=== PATIENT | female | born 1980 | race Caucasian/White ===

== ENCOUNTER 2022-05-22 12:35 | Emergency (ER) | payer OTHER, SELFPAY ==
[2022-05-22 14:19] VITALS: BP 200/117; PULSE 108; RESP 17; TEMP 36.6; O2SAT 99
[2022-05-22 15:09] LABS: Influenza A QL RT-PCR Negative (Negative); Influenza B QL RT-PCR Negative (Negative); RSV RNA, RT-PCR Negative (Negative); SARS-CoV-2 RNA PCR Negative
--- NOTE | 2022-05-22 16:43 | PC.NURSE ---
Pt ambulatory to ED intake desk and states Im just gonna leave, there are people here sicker than me, I dont want to wait anymore. Pt declined re vitals due to this RN request (hypertensive). Pt ambulated out w/ steady gait.
== END 2022-05-22 16:43 | disposition left against medical advice (07) ==
LOC: ANHED 16:47
PROVIDERS: Emergency Provider Emergency Medicine
DX: Z20.822 Contact with and (suspected) exposure to COVID-19 (principal)
CPT/HCPCS: 87637; 99199

== ENCOUNTER 2023-09-05 08:13 | Emergency (ER) | payer OTHER, SELFPAY ==
[2023-09-05 08:17] VITALS: BP 158/105; PULSE 114; RESP 16; TEMP 36.7; O2SAT 98
--- NOTE | 2023-09-05 08:34 | ED.GENADULT ---
HPI - General Adult General Chief complaint: Headache Stated complaint: headache Time Seen by Provider: 09/05/23 08:26 History of Present Illness HPI narrative: 43-year-old female present to the emergency department for evaluation for left-sided headache and neck pain. Patient states symptoms started yesterday and have been intermittent. Patient denies any falls or injuries. Patient denies any coughs colds or fevers. Patient denies any change in vision, patient denies any dental pain. Patient denies any ear pain Related Data Allergies Allergy/AdvReac Type Severity Reaction Status Date / Time No Known Allergies Allergy Verified 09/05/23 08:20 Review of Systems Review of Systems: All systems reviewed & are unremarkable except as noted in HPI and below Exam Narrative: APPEARANCE: Well appearing, no pain, no distress, well-nourished. HEAD: normocephalic, atraumatic. EYES: PERRLA/EOMI, conjunctivae clear. NOSE: Normal no drainage EARS:TMS clear with good light reflex. THROAT: Pharynx clear, no exudate. NECK: Supple. No adenopathy, no masses. RESPIRATORY: Airway patent, respirations nonlabored. Clear to auscultation bilaterally, no rales, rhonchi, wheezing. CARDIOVASCULAR: Regular rate and rhythm without murmurs rubs or gallops. ABDOMINAL: Soft, nontender, nondistended, normal bowel sounds MUSCULOSKELETAL: Moves all extremities. Strength/ROM intact, No edema, No calf tenderness. NEURO: Alert. Cranial nerves II through XII intact. SKIN: Warm, dry. Normal Color Course Vital Signs Vital signs: Vital Signs Temperature 98.1 F 09/05/23 08:17 Pulse Rate 114 H 09/05/23 08:17 Respiratory Rate 16 09/05/23 08:17 Blood Pressure 158/105 H 09/05/23 08:17 Pulse Oximetry 98 09/05/23 08:17 Temperature 98.1 F 09/05/23 08:17 Pulse Rate 114 H 09/05/23 08:17 Respiratory Rate 16 09/05/23 08:17 Blood Pressure 158/105 H 09/05/23 08:17 Pulse Oximetry 98 09/05/23 08:17 Medical Decision Making [facility] Narrative Medical decision making narrative: 43-year-old female presented emergency department for evaluation of left posterior lateral neck pain. Patient reports her symptoms are improved with treatment. Patient has declined any additional medications. Possible migraine. Low concern for dental infection and otitis media. Patient was advised to take Tylenol and ibuprofen for pain control patient will be provided Flexeril for additional muscle spasm control. Patient was encouraged of close follow-up with her primary care physician. Differential Diagnosis Differential Diagnosis: Otitis media, otitis externa, sinusitis, muscle strain, migraine, cervical spine injury, dental infection Vital Signs Vital Signs: Vital Signs Temperature 98.1 F 09/05/23 08:17 Pulse Rate 114 H 09/05/23 08:17 Respiratory Rate 16 09/05/23 08:17 Blood Pressure 158/105 H 09/05/23 08:17 Pulse Oximetry 98 09/05/23 08:17 Temperature 98.1 F 09/05/23 08:17 Pulse Rate 114 H 09/05/23 08:17 Respiratory Rate 16 09/05/23 08:17 Blood Pressure 158/105 H 09/05/23 08:17 Pulse Oximetry 98 09/05/23 08:17 Discharge Plan Discharge Clinical Impression: Headache, Neck pain Patient Disposition: Home, Self-Care Condition: Stable Instructions: Antibiotic Form Additional Instructions: Tylenol and ibuprofen for pain control. Flexeril as needed for muscle spasm. Have close follow-up with your primary care physician. If you have any worsening symptoms then please call or return to the emergency department. Prescriptions: New cyclobenzaprine 10 mg tablet 10 mg PO BID PRN (Reason: muscle spasm) Qty: 14 0RF Follow-up/Referrals: PHYSICIAN,LOG DECKMAN [Non-Staff] -
[2023-09-05] MEDS: KETOROLAC 15 MG/ML VIAL (*BKC) 30 MG IM (08:45)
[2023-09-05] MEDS: CYCLOBENZAPRINE HCL 10 MG TABLET PO (08:45)
== END 2023-09-05 10:45 | disposition home or self-care (01) ==
PROVIDERS: Emergency Provider Emergency Medicine
DX: R51.9 Headache, unspecified (principal); M54.2 Cervicalgia
CPT/HCPCS: 96372; 99283; A9270; J1885

== ENCOUNTER 2024-06-13 15:45 | Outpatient (CLI) | payer OTHER, SELFPAY ==
--- NOTE | ~2024-06-13 | MM_ITS ---
EXAMINATION: MM screening [facility] BI w giovana HISTORY: Baseline screening TECHNIQUE: Craniocaudal and mediolateral oblique 3-D tomosynthesis images were obtained and synthetic 2-D images were generated. CAD analysis was submitted and interpreted. COMPARISON: No prior mammogram. BREAST PARENCHYMAL COMPOSITION: There are scattered areas of fibroglandular density. FINDINGS: Punctate calcifications are detected bilaterally, morphologically benign in appearance. Unremarkable parenchymal pattern without suspicious microcalcifications, architectural distortion, di screte masses or significant asymmetry. IMPRESSION: 1. No mammographic evidence of malignancy. 2. Recommend routine screening mammography in one year. BI-RADS Category 2: Benign finding(s). Reviewed, dictated and finalized at location A.
--- OUTSIDE RECORDS SUMMARY | 2024-06-13 18:14 | XMS_ITS | Data Portability ---
Author Organization [facility] Address [address] [place] [address] Care Team Providers Care Admissions Advisor Name Role Phone RAVIBERTIN Primary Care Provider Unavailab le Assessment No assessment recorded. Plan of Treatment Reminders Order Date Submit Date Provider Last Modified By Organization Details Last Modified Time Details Appointments None recorded. Lab HbA1c (hemoglob in A1c), blood 2018 019 MICHAEL YANI, [address] [place], [place] [address]sammy [address]connor, [address], [place], [address], 9 17:03:58 vitamin D, 25-hydrox y, total, serum 2018 019 MICHAEL YANI, [address] [place], [place] [address]sammy Elvin, [address], [place], [address], 9 17:03:58 lipid panel, serum 2018 019 MICHAEL YANI, [address] [place], [place] [address]sammy [address]vin, [address], [place], [address], 9 17:03:58 CK (creatine kinase), total, serum 2018 019 MICHAEL LOMELI, [address] [place], [place] [address]sammy [address]con[address], [address], [place], [address], 9 17:03:58 CMP, serum or plasma 2018 019 MICHAEL LOMELI, [address] [place], [place] [address], [address], [place], [address], 9 17:03:59 TSH, ultra-sen sitive, serum 2018 019 [facility], [address], [address], [place], [address], 9 17:03:58 CBC 2018 019 [facility], [address], [address], [place], [address], 9 17:03:59 Referral None recorded. Procedures None recorded. Surgeries None recorded. Imaging None recorded. Medication Orders losartan 50 mg tablet 2018 019 [id number], [address], [place], [place], [id number], 17:01:25 Patient TargetsNo targets recorded. Patient Instructions Encounter Date Encounter Id Patient Instructions Last Modified By Organization Details Last Modified Time 11/25/2018 [id number] reviewed salty foods to avoid . [email or web address] Not available 11/27/2018 16:56:04 Reason for Referral None Reported. Problems Name Problem SNOMED Code Status Onset Date Resolution Date Notes Provider Name and Address Organization Details Recorded Time Essential hypertension 49568515 Active 2018 Bertin Funez PA-C Attn: Joseph lux,[address] [facility], [place], [address], [facility] 9 17:00:52 Family history of Raised blood lipids 117205396 Active 2018 Bertin Funez PA-C Attn: Joseph lux,[address] [facility], [place], [address], [facility] 9 17:02:40 Obese 076420379 Active 2018 Bertin Funez PA-C Attn: Joseph lux,[address] [facility], [place], [address], [facility] 9 17:03:24 Problem Notes None recorded. Medical Equipment None Reported. Allergies No known drug allergies Medications Name Sig Start Date Stop Date Status Note LastModified by Organization Details LastModified Time losartan 50 mg tablet Take 1 tablet every day by oral route in the morning for 30 days. 019 active Not Available Not Available Not Avai lable labetalol 100 mg tablet active Not Available Not Available Not Available Vitals Date Recorded Body height Body mass index (BMI) Body weight Oxygen saturation Oxygen saturation in Arterial blood by Pulse oximetry Heart rate Body temperature Systolic blood pressure Diastolic blood pressure Provider Name and Address Organization Details Last Updated DateTime 9 167.64 cm 43.7 kg/m2 854707. 53 g 98 % 98 % 96 /min 98.3 [degF] 140 mm[Hg] 80 mm[Hg] Collette Poole MA [facility] 9 16:53:36 Social History Question Answer Notes LastModified by Organizat ion Details LastModified Time Tobacco Smoking Status Never Smoker Collette Poole MA null, [facility] 11/25/2018 16:42:39 Do You Have An Advance Directive? No Information not available 11/25/2018 What Is Your Level Of Alcohol Consumption? None Information not available 11/25/2018 What Is Your Level Of Caffeine Consumption? Heavy Soda Information not available 11/25/2018 How Much Tobacco Do You Chew? None Information not available 11/25/2018 What Type Of Diet Are You Following? REGULAR Information not available 11/25/2018 Which Illicit Or Recreational Drugs Have You Used? None Information not available 11/25/2018 Do You Or Have You Ever Used E-cigarettes Or Vape? 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 No Information not available 11/25/2018 Hard Of Hearing Or Deaf In One Or Both Ears? No Information not available 11/25/2018 Legally Blind In One Or Both Eyes? No Information no t available 11/25/2018 Marital Status Single Informatio n not available 11/25/2018 Performs Monthly Self-breast Exam? No Information no t available 11/25/2018 Seat Belts Used Routinely Yes Information not available 11/25/2018 Smoke Alarm In Home Yes Information not available 11/25/2018 Do You Or Have You Ever Used Smokeless Tobacco? Never Used Smokeless Tobacco Information not available 11/25/2018 General Stress Level Medium Information not available 11/25/2018 Do You Use Sunscreen Routinely? No Information not available 11/25/2018 Sex: Unknown Functional Status Question Answer Note LastModified by Organizat ion Details LastModified Time What is your exercise level? Occasional Information not available 11/25/2018 Mental Status None recorded. Family History Relationship Description Onset Age of this Age Resolved Age Notes LastModified by Organization Details LastModified Time Father Hypertensive disorder [email or web address] Not available 2018 16:39:29 Mother Hypertensive disorder [email or web address] Not available 2018 16:39:29 Brother Heart disease 23 open heart surg as a infant , was on transp lant list for heart and lung. Not exact sure of medica l condit ion. [email or web address] Not available 11/25/2018 16:40:28 Paternal Grandmother Malignant tumor of lung [email or web address] Not available 2018 16:41:38 Paternal Grandfather Malignant tumor of lung dgriggsma Not available 2018 16:41:38 Notes:Throat cancer Maternal Grandfather Medical History Condition Response Coronary Artery Disease N Atrial Fibrillation N High Blood Pressure Y Thyroid Problems N Kidney or Bladder Problems N GI Problems N Depression Y COPD N Blood Clots N Eating Disorder N Anemia Y Heart Attack (MT) N Diabetes N Anxiety Disorder N Seizures/Epilepsy N Acid Reflux (GERD) Y Cancer N Stroke N Asthma N Allergies N ADHD N Substance Abuse N High Cholesterol N Hepatitis N Liver Disease N Schizophrenia N Heart Failure N Gynecological HistoryNo gynecological history recorded. Obstetrics History GPAL:G 0 P 0 0 0 0 Past Encounters Encounter ID Performer Location Encounter Start Date Encounter Closed Date Diagnosis/Indication Diagnosis SNOMED-CT Code Diagnosis ICD10 Code Diagnosis Note [id number] ANGIE L[facility]pez (Adult Med) [address] [place] [address] 11/25/2018 16:23:44 11/28/2018 09:34:50 Essential hypertension 45626648 I10 Family his tory of Raised blood lipids 227724012 Z83.49 Obese 640900836 E66.9 Health Concerns Section Related Observation LastModified by Organization Detai ls LastModified Time None Recorded Concern Status LastModified by Organization Details LastModified Time None Recorded Advance Directives Directive N: Payers Encounter Date Sequence Insurance Name Policy Number Policy Nava Covered Member ID Nava Member ID Guarantor Name 11/25/2018 1 [facility] - DOS PRIOR TO 2020 (MEDICAID REPLACEMENT - HMO) Betina Navas [id number] Betina Navas Notes Date Note Type Note Provider Name and Address Organization Details Recorded Time 11/25/2018 text/html not breast feeding .... Bertin Funez PA-C Attn: Accounting,[address] [facility], [place], [address], [facility] 11/27/2018 16:56:32 OBGyn Episode No OBEpisode recorded.
== END 2024-06-13 15:46 | disposition home or self-care (01) ==
PROVIDERS: PCP Nurse Practitioner Adult Health; Visit Provider Obstetrics & Gynecology
DX: Z12.31 Encounter for screening mammogram for malignant neoplasm of breast (principal)
CPT/HCPCS: 77063; 77067